=== PATIENT | male | born 1940 | race Caucasian/White ===

== ENCOUNTER 2021-10-23 07:04 | Observation (INO) | payer MEDICARE, SELFPAY ==
[2021-10-23] VITALS (53 sets, daily range): BP systolic 125–233; BP diastolic 68–112; PULSE 54–75; RESP 14–24; TEMP 35.9–36.7; O2SAT 92–98; BMI 27.9
--- NOTE | 2021-10-23 07:30 | DI.RAD.S_ITS ---
PROCEDURE: XR CHEST 1V INDICATIONS: chest pain TECHNIQUE: One view of the chest was acquired. COMPARISON: None. FINDINGS: Surgical changes and devices: None. Lungs and pleura: Minimal streaky opacity at the right cardiophrenic angle. No pleural effusions or pneumothorax. Mediastinum: Mediastinal contours appear normal. Heart size is at the upper limits of normal. Bones and chest wall: No suspicious bony lesions. Overlying soft tissues appear unremarkable. IMPRESSION: Minimal streaky opacity at the right cardiophrenic angle. Favor atelectasis over pneumonia. Dictated by: Delonte Myers M.D. on 10/23/2021 at 8:08 Approved by: Delonte Myers M.D. on 10/23/2021 at 8:09
[2021-10-23 08:04] LABS: Add Manual Diff / Slide Review NO; Basophils Absolute Auto 0 /uL (0-100); Basophils Percent Auto 0.6 % (0-2); Eosinophils Absolute Auto 300 /uL (0-450); Eosinophils Percent Auto 4.5 % (2-4); Hematocrit 43.4 % (41-53); Lymphocytes Absolute Auto 1600 /uL (1100-4500); Lymphocytes Percent Auto 27.4 % (25-40); Mean Corpuscular HGB Conc 34.6 % (30-36); Mean Corpuscular Volume 95.4 fL (80-100); Monocytes Absolute Auto 400 /uL (0-900); Monocytes Percent Auto 7.6 % (3-14); Neutrophils Absolute Auto 3500 /uL (1500-7000); Neutrophils Percent Auto 59.9 % (50-75); Platelet Count 185 X10^3/uL (150-400); Red Blood Cell Count 4.55 X10^6/uL (4.5-5.9); White Blood Cell Count 5.8 X10^3/uL (4.5-11.0)
[2021-10-23 08:10] LABS: Alanine Aminotransferase 37 IU/L (<50); Albumin 4.5 g/dL (3.5-5.0); Albumin Globulin Ratio 1.5 (1.0-2.8); Alkaline Phosphatase 69 U/L (38-126); Aspartate Aminotransferase 51 IU/L (17-59); BUN Creatinine Ratio 20.3 (6-22); Bilirubin Total 0.8 mg/dL (0.2-1.3); Blood Urea Nitrogen 16 mg/dL (9-20); Calcium 8.8 mg/dL (8.4-10.2); Carbon Dioxide 27 mmol/L (22-32); Chloride 106 mmol/L (98-107); Creatine Kinase 137 U/L (55-170); Estimated Glomerular Filt Rate > 60 mL/min (>60); Globulin 3.1 g/dL (1.7-4.1); Glucose 122 mg/dL (80-110); HEMOLYSIS 152 (0-50); Lipase 115 U/L (23-300); Magnesium 1.9 mg/dL (1.6-2.3); Sodium 138 mmol/L (137-145); Total Protein 7.6 g/dL (6.3-8.2)
[2021-10-23 08:22] LABS: Troponin I 0.019 ng/mL (0.01-0.034)
[2021-10-23 08:23] LABS: Potassium 5.2 mmol/L (3.4-5.1)
[2021-10-23 08:25] LABS: Creatine Kinase MB 2.74 ng/mL (<2.37)
--- NOTE | 2021-10-23 08:52 | ED.CHESTPAIN ---
HPI - Chest Pain General Chief Complaint: Chest Pain Stated Complaint: heart issue Time Seen by Provider: 10/23/21 08:38 Source: patient Mode of arrival: Ambulatory Limitations: no limitations History of Present Illness HPI narrative: This is a 80-year-old male with history of hypertension, dyslipidemia and borderline diabetes with a hemoglobin A1c reported at 5.6. Patient has had left-sided chest pressure that started overnight. He states still present very minimally. For the last 3-4 days he has had shortness of breath particularly when taking stairs. He states his home on [facility] has multiple stairs and he usually takes them 2 at a time and is having to slow down. He woke up at 2:30 a.m. this morning and had chest pressure with a sensation of shortness of breath. Patient states shortness of breath is resolved. He checked his blood pressure was 230/113. He denies fevers or chills, no new cold or congestive symptoms. He has a longstanding chronic cough. No nausea or vomiting, no diarrhea constipation no urinary symptoms. He normally takes a statin he was started on a blood pressure medication he describes starting with an L3 days ago and they attempted amlodipine in the past but had swelling in his extremities. No tobacco, he has 3-4 oz of alcohol 5-7 days a week, no illicit. His father had a ?burst valve? at age 71, his mother lived to 106, his sister had bilateral strokes at age 50 and survived but still is in a wheelchair. Patient does not take an aspirin daily. Related Data Home Medications Medication Instructions Recorded Confirmed rosuvastatin 5 mg tablet (Crestor) 5 mg PO QDAY #0 03/06/16 10/23/21 fluticasone propionate 50 1 spray INTRANASAL DAILY PRN 10/23/21 10/23/21 mcg/actuation nasal spray,suspension losartan 50 mg tablet 50 mg PO DAILY 10/23/21 10/23/21 omeprazole 20 mg tablet,delayed 20 mg PO DAILY 10/23/21 10/23/21 release Allergies Allergy/AdvReac Type Severity Reaction Status Date / Time amlodipine AdvReac Verified 10/23/21 12:24 atenolol AdvReac Verified 10/23/21 12:24 atorvastatin AdvReac Verified 10/23/21 12:24 lidocaine AdvReac Rash Verified 10/23/21 12:24 Penicillins AdvReac Verified 10/23/21 12:24 pravastatin AdvReac Verified 10/23/21 12:24 simvastatin AdvReac Verified 10/23/21 12:24 Review of Systems Review of Systems ROS Unobtainable: All systems reviewed & are unremarkable except as noted in HPI and below Patient History Social History household members: spouse Smoking Status: Never smoker alcohol intake: current Exam Narrative Exam Narrative: GENERAL: Alert and oriented x three, male in mild distress HEENT: Head normocephalic, atraumatic, EOMI, pupils reactive, face symmetric, moist mucous membranes NECK: Supple, full range of motion CARDIOVASCULAR: Regular rate and rhythm without murmurs, rubs or gallops. No JVD. RESPIRATORY: Breath sounds equal bilaterally, no wheezes rales or rhonchi. ABDOMEN: Soft, nontender. Normoactive bowel sounds all 4 quadrants. No guarding or rebound, rigidity, no mass : No CVA tenderness EXTREMITIES: Normal range of motion, no clubbing or edema. Neurovascularly intact NEUROLOGICAL: Cranial nerves II through XII grossly intact. Moving all extremities SKIN: Warm, dry, no petechiae, no rashes or lesions. Initial Vital Signs Initial Vital Signs: Vital Signs Temperature 96.7 F L 10/23/21 07:14 Pulse Rate 73 10/23/21 07:14 Respiratory Rate 16 10/23/21 07:14 Blood Pressure 233/112 H 10/23/21 07:14 Pulse Oximetry 96 10/23/21 07:14 Course Orders Ordered: Acetaminophen (Acetaminophen 325 Mg Tablet) 650 mg PO Q6HR PRN PRN Reason: Fever/Mild Pain (1-3) Losartan Potassium (Losartan 50 Mg Tablet) 50 mg PO DAILY [facility] Last Admin: 10/23/21 13:51 Dose: 50 mg Documented by: CMCFARL Magnesium Hydroxide (Magnesium Hydroxide 30 Ml Udc) 30 ml PO DAILY PRN PRN Reason: Constipation Naloxone HCl (Naloxone 0.4 Mg/Ml Vial) 0.2 mg IV Q2MIN PRN PRN Reason: Opiate Reversal Nitroglycerin (Nitroglycerin 0.4 Mg Sl Tab) 0.4 mg SL [id number] PRN PRN Reason: Chest Pain Pantoprazole Sodium (Pantoprazole Dr 20 Mg Tablet) 20 mg PO DAILY [facility] Last Admin: 10/23/21 13:53 Dose: 20 mg Documented by: CMCFARL Sodium Chloride (Sodium Chloride 0.9% Flush) 10 ml IV PRN PRN PRN Reason: Flush Sodium Chloride (Sodium Chloride 0.9% Flush) 10 ml IV BID [facility] Discontinued Medications Aspirin (Aspirin 81 Mg Chew Tab) 324 mg PO NOW ONE Stop: 10/23/21 09:29 Last Admin: 10/23/21 09:32 Dose: 324 mg Documented by: KAI Nitroglycerin (Nitroglycerin 0.4 Mg Sl Tab) 0.4 mg SL [id number] PRN PRN Reason: Chest Pain Last Admin: 10/23/21 09:51 Dose: 0.4 mg Documented by: Admin: 10/23/21 09:32 Dose: 0.4 mg Documented by: KAI Consultations Consultation #1: Dr. Colby, accepts for chest pain observatio and stress testing. Time: 10:47 Vital Signs Vital signs: Vital Signs - 8 hr 10/23/21 10:36 10/23/21 10:39 10/23/21 10:42 Pulse Rate 63 61 56 L Respiratory Rate 23 18 19 Blood Pressure 139/77 150/68 H 135/69 Pulse Oximetry 95 94 95 10/23/21 10:45 10/23/21 10:48 10/23/21 10:51 Pulse Rate 57 L 56 L 54 L Respiratory Rate 18 20 19 Blood Pressure 134/73 151/74 H 150/73 H Pulse Oximetry 95 96 96 10/23/21 10:54 10/23/21 10:57 10/23/21 11:00 Pulse Rate 63 64 62 Respiratory Rate 20 22 Blood Pressure 136/73 143/79 H 169/86 H Pulse Oximetry 96 96 97 MDM - Chest Pain Lab Data Result diagrams: 10/23/21 07:25 10/23/21 07:47 Labs: Lab Results 10/23/21 10/23/21 10/23/21 Range/Units 07:25 07:47 09:17 WBC 5.8 (4.5-11.0) X10^3/uL RBC 4.55 (4.5-5.9) X10^6/uL Hgb 15.0 (13.5-17.5) g/dL Hct 43.4 (41-53) % MCV 95.4 (80-100) fL MCH 33.0 (26-34) PG MCHC 34.6 (30-36) % RDW 14.0 (11.6-14.8) % Plt Count 185 (150-400) X10^3/uL Neut % (Auto) 59.9 (50-75) % Lymph % (Auto) 27.4 (25-40) % Placer % (Auto) 7.6 (3-14) % Eos % (Auto) 4.5 H (2-4) % Baso % (Auto) 0.6 (0-2) % Neut # (Auto) 3500 (3373-4251) /uL Lymph # (Auto) 1600 (6045-9217) /uL Placer # (Auto) 400 (0-900) /uL Eos # (Auto) 300 (0-450) /uL Baso # (Auto) 0 (0-100) /uL Sodium 138 (137-145) mmol/L Potassium 5.2 H (3.4-5.1) mmol/L Chloride 106 (98-107) mmol/L Carbon Dioxide 27 (22-32) mmol/L BUN 16 (9-20) mg/dL Creatinine 0.79 (0.66-1.25) mg/dL Estimated GFR > 60 (>60) mL/min BUN/Creatinine Ratio 20.3 (6-22) Glucose 122 H (80-110) mg/dL Calcium 8.8 (8.4-10.2) mg/dL Magnesium 1.9 (1.6-2.3) mg/dL Total Bilirubin 0.8 (0.2-1.3) mg/dL AST 51 (17-59) IU/L ALT 37 (<50) IU/L Alkaline Phosphatase 69 (38-126) U/L Total Creatine Kinase 137 (55-170) U/L CK-MB (CK-2) 2.74 H (<2.37) ng/mL CK-MB (CK-2) Rel Index 2.0 (1.5-5.0) % Troponin I 0.019 0.019 (0.01-0.034) ng/mL Total Protein 7.6 (6.3-8.2) g/dL Albumin 4.5 (3.5-5.0) g/dL Globulin 3.1 (1.7-4.1) g/dL Albumin/Globulin Ratio 1.5 (1.0-2.8) Lipase 115 (23-300) U/L SARS-CoV-2 (PCR) (Negative) 10/23/21 Range/Units 09:22 WBC (4.5-11.0) X10^3/uL RBC (4.5-5.9) X10^6/uL Hgb (13.5-17.5) g/dL Hct (41-53) % MCV (80-100) fL MCH (26-34) PG MCHC (30-36) % RDW (11.6-14.8) % Plt Count (150-400) X10^3/uL Neut % (Auto) (50-75) % Lymph % (Auto) (25-40) % Placer % (Auto) (3-14) % Eos % (Auto) (2-4) % Baso % (Auto) (0-2) % Neut # (Auto) (8789-1980) /uL Lymph # (Auto) (4963-0188) /uL Placer # (Auto) (0-900) /uL Eos # (Auto) (0-450) /uL Baso # (Auto) (0-100) /uL Sodium (137-145) mmol/L Potassium (3.4-5.1) mmol/L Chloride (98-107) mmol/L Carbon Dioxide (22-32) mmol/L BUN (9-20) mg/dL Creatinine (0.66-1.25) mg/dL Estimated GFR (>60) mL/min BUN/Creatinine Ratio (6-22) Glucose (80-110) mg/dL Calcium (8.4-10.2) mg/dL Magnesium (1.6-2.3) mg/dL Total Bilirubin (0.2-1.3) mg/dL AST (17-59) IU/L ALT (<50) IU/L Alkaline Phosphatase (38-126) U/L Total Creatine Kinase (55-170) U/L CK-MB (CK-2) (<2.37) ng/mL CK-MB (CK-2) Rel Index (1.5-5.0) % Troponin I (0.01-0.034) ng/mL Total Protein (6.3-8.2) g/dL Albumin (3.5-5.0) g/dL Globulin (1.7-4.1) g/dL Albumin/Globulin Ratio (1.0-2.8) Lipase (23-300) U/L SARS-CoV-2 (PCR) Negative (Negative) Urine Dip Bedside Urine Glucose Negative Bedside Urine Bilirubin - Negative Bedside Urine Ketone - Negative Urine Specific [place] 1.010 Bedside Urine Occult Blood - Negative Bedside Urine pH 6.0 Bedside Urine Protein - Negative Bedside Urine Urobilinogen - Negative Bedside Urine Nitrite - Negative Bedside Urine Leukocytes - Negative Esterase Imaging Data Chest x-ray: Radiologist's Impression: [address] [address] XRay Report Signed Patient: Vishal Calderon MR#: [id number] : 1940 Acct:[id number] Age/Sex: 80 / M Date of Service: 10/23/21 Loc: ED Accession Number: [id number] ?? Procedure: XR chest 1V Ordering Provider: Erin Bowman D.O. PROCEDURE:? XR CHEST 1V ? INDICATIONS:? chest pain ? TECHNIQUE:? One view of the chest was acquired.? ? COMPARISON:? None. ? FINDINGS:? ? Surgical changes and devices:? None.? ? Lungs and pleura:? Minimal streaky opacity at the right cardiophrenic angle.? No pleural effusions or pneumothorax.? ? Mediastinum:? Mediastinal contours appear normal.? Heart size is at the upper limits of normal.? ? Bones and chest wall:? No suspicious bony lesions.? Overlying soft tissues appear unremarkable.? ? IMPRESSION:? Minimal streaky opacity at the right cardiophrenic angle.? Favor atelectasis over pneumonia. ? ? ? Dictated by: Delonte Myers M.D. on 10/23/2021 at 8:08 ? ? Approved by: Delonte Myers M.D. on 10/23/2021 at 8:09?? ECG Data Attestation: I personally reviewed and interpreted this ECG as follows: Prior ECG tracings: not available for review Interpretation: Sinus bradycardia rate of 57 IL 156 QRS 82 and QTC of 402. No acute ST elevation or depression noted. EKG 2 shows sinus rhythm, rate of 62 [place] 160 QRS is 88 QTC of 406. Patient's EKG has no acute ST changes and appears similar to prior from today. [facility] Narrative Medical decision making narrative: This is a 80-year-old male who comes to the emergency department with complaint shortness of breath and chest pressure particularly with exertion patient's initial troponin, EKG and chest x-ray show no acute changes. He was quite hypertensive upon arrival and was still 190s with evaluated by myself. Patient just started a new blood pressure medication 3 days ago. Potassium is slightly elevated but no other major lab changes. Patient's repeat troponin is negative, no acute EKG changes, patient had significant improvement his chest pressure with nitro. Was given aspirin nitro but to heparin was not initiated spoke with hospitalist who accepts for observation for chest pain. Discharge Plan Departure Patient Disposition: Admitted as Observation Clinical Impression: Chest pain Admit Date/Time: 10/23/21 11:02 Admit Provider: Nash Colby
[2021-10-23] MEDS: ASPIRIN 81 MG CHEW TAB 324 MG PO (09:32)
[2021-10-23] MEDS: NITROGLYCERIN 0.4 MG SL TAB SL ×2 (09:32→09:51)
--- NOTE | 2021-10-23 09:44 | PC.NURSE ---
Chest pressure reduced to 1/10 after one dose nitro. BP 130/73
[2021-10-23 09:53] LABS: Troponin I 0.019 ng/mL (0.01-0.034)
[2021-10-23 10:00] LABS: COVID19 -Nasal RAPID Negative (Negative)
--- NOTE | 2021-10-23 12:52 | DI.ECHO.S_ITS ---
[facility] +---------+ : : [address] : : : : [id number] : : : : Phone: [phone] Echocardiogram Report + + :Name: KRISTAL HOWELL Study Date: 10/23/2021 Height: 66 in : :[facility] ReadingLocation: Weight: 173 lb : : Gender: Male BSA: 1.9 m2 : :: 1940 Age: 80 yrs BP: 137/76 mmHg: :Reason For Study: CHEST PAIN : :Ordering Physician: ANDRIA, : :HONORIO Performed By: Abida Beatty : :Referring: HONORIO AYERS : + + Interpretation Summary The ejection fraction is estimated to be 60-65%. Diastolic function is indeterminate. The right ventricle is normal in size and function. There is mild tricuspid regurgitation. The right ventricular systolic pressure is estimated to be at least 32 mmHg based on an estimated right atrial pressure of 3 mm Hg. Procedure: A two-dimensional transthoracic echocardiogram with color flow and Doppler was performed. The study quality was technically adequate. There is no prior echocardiogram noted for this patient. The patient was in sinus rhythm with heart rates between 54-68 bpm during the exam. Left Ventricle: The left ventricle is normal in size and wall thickness. The ejection fraction is estimated to be 60-65%. Diastolic function could not be accurately assessed due to contradictory data. Right Ventricle: The right ventricle is normal in size and function. Atria: The left atrial size is normal. Right atrial size is normal. There is no Doppler evidence for an interatrial shunt. Mitral Valve: The mitral valve is normal in structure and function. There is mild mitral regurgitation. Aortic Valve: The aortic valve is trileaflet. The aortic valve opens well. There is no aortic valve stenosis. There is trace aortic regurgitation. Tricuspid Valve: The tricuspid valve is normal in structure and function. There is mild tricuspid regurgitation. The right ventricular systolic pressure is estimated to be at least 32 mmHg based on an estimated right atrial pressure of 3 mm Hg. Pulmonic Valve: The pulmonic valve is not well seen, but is grossly normal. There is trace pulmonic regurgitation. Great Vessels: The aortic root is normal size. The dimensions of the ascending aorta are normal. The IVC is of normal diameter and collapses greater than 50% with a sniff. This suggests a low right atrial pressure of 3 mm Hg. Pericardium/ Pleura There is no pericardial effusion. There is no pleural effusion. MMode/2D Measurements & Calculations LVIDd: 4.7 cm LVOT diam: 2.1 cm LVIDs: 3.0 cm Ao root diam: 3.3 cm FS: 35.5 % asc Aorta Diam: 3.4 cm IVSd: 0.98 cm Ao Arch Diam (Prox Trans): 2.9 cm LVPWd: 0.86 cm LV guerrero. diameter/BSA (cm/m^2): 2.5 LV sys. diameter/BSA (cm/m^2): 1.6 LA A2 area: 18.2 cm2 RA long axis: 5.0 cm LA A4 area: 17.2 cm2 RA area: 15.0 cm2 LA length (vol): 5.1 cm RA vol: 38.1 ml LA vol: 52.7 ml RA : 20.2 ml/m2 LA vol index: 28.0 ml/m2 IVC diam: 1.3 cm RVD1 (basal): 3.4 cm RVD2 (mid): 3.1 cm TAPSE: 2.2 cm Doppler Measurements & Calculations Ao V2 max: 129.9 cm/sec LVOT Max Eugene: 79.9 cm/sec Ao V2 mean: 93.4 cm/sec LV V1 max P.6 mmHg Ao max P.8 mmHg LV V1 VTI: 19.2 cm Ao mean P.8 mmHg SULLY(I,D): 2.2 cm2 Ao V2 VTI: 31.3 cm SULLY(V,D): 2.2 cm2 sev ratio: 0.62 SULLY indexed to BSA (cm^2/m^2): 1.2 MV E max eugene: 91.6 cm/sec TR max eugene: 270.3 cm/sec MV A max eugene: 100.5 cm/sec TR max P.2 mmHg MV E/A: 0.91 PA V2 max: 68.2 cm/sec Med Peak E' Eugene: 3.3 cm/sec PA V2 mean: 49.9 cm/sec E/E' med: 27.8 PA mean P.1 mmHg Lat Peak E' Eugene: 5.9 cm/sec PA pr(Accel): 5.4 mmHg E/E' lat: 15.5 E/e' average: 21.6 MV dec time: 0.22 sec [facility] 68.8 ml Reading Physician:02:42 PM
--- NOTE | 2021-10-23 12:52 | DI.NM.S_ITS ---
PROCEDURE: NM TERENCE PERF SPECT REST & STR Rest and exercise myocardial perfusion SPECT with gated imaging and ejection fraction RADIOPHARMACEUTICAL: 11.5 mCi Tc-99m sestamibi IV at rest and 25.2 mCi Tc-99m sestamibi IV at peak exercise. A 1-tdv-pruurvjo was performed. INDICATIONS: chest pain TECHNIQUE: Radiopharmaceutical was injected at peak stress test, and also at rest. SPECT images were obtained. SPECT myocardial perfusion images were displayed in short axis, horizontal long axis, and vertical long axis views. Gated images were reviewed using Central Desktop software. COMPARISON: None. CARDIAC STRESS: A standard Rohan treadmill exercise tolerance test was performed by the patient under the supervision of an attending staff. The patient exercised for 9 minutes and 0 seconds; 10.1 METS; functional aerobic impairment (PEMA) is -59%. Hemodynamic data: There is normal blood pressure and heart rate response to exercise stress. Patient achieved 118% of maximum predicted heart rate at peak exercise. Symptoms: Patient denied chest pain during exercise. EKG: No diagnostic EKG changes of ischemia; frequent PVCs. FINDINGS: Raw data: There is good myocardial labeling by radiotracer. No significant motion artifacts. Gqjl-dd-rdjjd ratio is 0.27 (normal is less than 0.38 for sestamibi tracer, and less than 0.50 for thallium tracer). Left ventricle function: Gated images demonstrate normal left ventricle wall thickening. No segmental wall motion abnormality. No transient ischemic dilation; TID is 0.90 (normal less than 1.3). The left ventricle resting end-diastolic volume is 90 mL. Left ventricle stress ejection fraction is 72%; normal values are above 45%. Myocardial perfusion: There is normal distribution of activity in the left and right ventricular myocardium. No fixed or reversible perfusion defects. IMPRESSION: No evidence of exercise-induced ischemia on ECG or SPECT imaging. Normal ejection fraction. Normal blood pressure response to exercise, max BP 192/98. Excellent exercise capacity. Dictated by: Eve Singh D.O. on 10/24/2021 at 15:53 Approved by: Eve Singh D.O. on 10/24/2021 at 15:57
--- NOTE | 2021-10-23 13:05 | P.HP_ITS ---
History of Present Illness History of Present Illness Date Patient Seen: 10/23/21 Time Patient Seen: 12:00 Chief complaint: heart issue Narrative: 80-year-old male with history of hypertension, hyperlipidemia, GERD presents to the ED with new onset chest discomfort and dyspnea. Patient developed chest discomfort late last night. He was able to fall asleep but woke up at 2:00 a.m. from chest pain. He describes it as a pressure in the left chest. He checked h is blood pressure then and got a reading of 230/113. The discomfort was persistent but patient lives on [facility] and was waiting for the 6:30 a.m. kim to come in to get checked out. He was still having chest pain when he arrived in the ED. The discomfort was relieved after 2 sublingual nit roglycerin. His initial BP in the ED was 233/112 and came down significantly after the nitroglycerin. Patient also notes a sore ferguson all dyspnea which started a few days ago and occurs with walking up an incline or carrying heavy things. He denies past history of cardiac disease. He was started on losartan about 10 days ago after he saw his provider for a routine physical. He states blood pressure at provider's office was 165/85. He had been on amlodipine a year ago which caused swelling in the feet and thereby stopped it. He is a nonsmoker. He has several drinks a week. Family history notable for sister who had major stroke at age 50 and father who at age 71 from a burst heart valve. Mom lived to past age 100. His initial troponin is negative. Initial EKG show sinus bradycardia, possible old anterior SC, no acute appearing changes. Chest x-ray shows minimal streaky opacity at right base consistent with atelectasis. He has not had fever, cough or chills to suggest pneumonia. COVID was negative. Glucose was a little high at 122, potassium a little high at 5.2. Patient History Family & Social History Social History: household members spouse Prior Living Arrangements House Safety & Behavioral: Feels Safe in Current Yes Environment Been Physically Hurt or No Threatened By a Person Tobacco & Substance use: Smoking Status Never smoker alcohol intake current alcohol intake frequency a few times a week Substance Use Type does not use Meds Home Medications and Allergies Home Medications Medication Instructions Recorded Confirmed Type rosuvastatin 5 mg tablet (Crestor) 5 mg PO QDAY #0 03/06/16 10/23/21 History fluticasone propionate 50 1 spray INTRANASAL DAILY PRN 10/23/21 10/23/21 History mcg/actuation nasal spray,suspension losartan 50 mg tablet 50 mg PO DAILY 10/23/21 10/23/21 History omeprazole 20 mg tablet,delayed 20 mg PO DAILY 10/23/21 10/23/21 History release Allergies Allergy/AdvReac Type Severity Reaction Status Date / Time amlodipine AdvReac Verified 10/23/21 12:24 atenolol AdvReac Verified 10/23/21 12:24 atorvastatin AdvReac Verified 10/23/21 12:24 lidocaine AdvReac Rash Verified 10/23/21 12:24 Penicillins AdvReac Verified 10/23/21 12:24 pravastatin AdvReac Verified 10/23/21 12:24 simvastatin AdvReac Verified 10/23/21 12:24 Review of Systems Review of Systems Narrative: Complete 10 point ROS otherwise negative. Exam Vital Signs (past 8 hours): - 10/23/21 07:14 10/23/21 07:18 10/23/21 07:30 Temperature 96.7 F L Pulse Rate 73 66 66 Respiratory Rate 16 15 21 Blood Pressure 233/112 H 213/97 H Pulse Oximetry 96 97 96 10/23/21 08:00 10/23/21 08:30 10/23/21 09:00 Temperature Pulse Rate 63 63 60 Respiratory Rate 20 17 18 Blood Pressure 194/96 H 199/99 H 191/89 H Pulse Oximetry 96 93 96 10/23/21 09:30 10/23/21 09:32 10/23/21 09:36 Temperature Pulse Rate 66 65 60 Respiratory Rate 18 20 Blood Pressure 188/90 H 188/90 H 168/83 H Pulse Oximetry 97 97 10/23/21 09:39 10/23/21 09:42 10/23/21 09:45 Temperature Pulse Rate 75 73 68 Respiratory Rate 19 19 21 Blood Pressure 145/81 H 130/73 147/80 H Pulse Oximetry 95 92 93 10/23/21 09:48 10/23/21 09:51 10/23/21 09:54 Temperature Pulse Rate 74 66 68 Respiratory Rate 22 19 18 Blood Pressure 150/85 H 149/83 H 154/78 H Pulse Oximetry 95 95 95 10/23/21 09:57 10/23/21 10:00 10/23/21 10:03 Temperature Pulse Rate 75 70 73 Respiratory Rate 18 19 Blood Pressure 141/75 H 145/76 H 147/76 H Pulse Oximetry 93 94 94 10/23/21 10:06 10/23/21 10:09 10/23/21 10:12 Temperature Pulse Rate 73 66 75 Respiratory Rate 21 19 23 Blood Pressure 144/76 H 139/78 147/84 H Pulse Oximetry 95 95 96 10/23/21 10:15 10/23/21 10:18 10/23/21 10:21 Temperature Pulse Rate 73 70 67 Respiratory Rate 21 14 20 Blood Pressure 158/88 H 133/74 125/73 Pulse Oximetry 95 95 95 10/23/21 10:24 10/23/21 10:27 10/23/21 10:30 Temperature Pulse Rate 68 68 60 Respiratory Rate 19 19 Blood Pressure 134/78 141/82 H 140/80 Pulse Oximetry 95 96 96 10/23/21 10:33 10/23/21 10:36 10/23/21 10:39 Temperature Pulse Rate 66 63 61 Respiratory Rate 19 23 18 Blood Pressure 144/81 H 139/77 150/68 H Pulse Oximetry 95 95 94 10/23/21 10:42 10/23/21 10:45 10/23/21 10:48 Temperature Pulse Rate 56 L 57 L 56 L Respiratory Rate 19 18 20 Blood Pressure 135/69 134/73 151/74 H Pulse Oximetry 95 95 96 10/23/21 10:51 10/23/21 10:54 10/23/21 10:57 Temperature Pulse Rate 54 L 63 64 Respiratory Rate 19 20 Blood Pressure 150/73 H 136/73 143/79 H Pulse Oximetry 96 96 96 10/23/21 11:00 10/23/21 11:03 10/23/21 11:06 Temperature Pulse Rate 62 63 59 L Respiratory Rate 22 22 18 Blood Pressure 169/86 H 179/81 H 154/75 H Pulse Oximetry 97 97 97 10/23/21 11:09 10/23/21 11:12 10/23/21 11:15 Temperature Pulse Rate 59 L 56 L 60 Respiratory Rate 20 20 23 Blood Pressure 137/72 132/72 138/71 Pulse Oximetry 96 96 96 10/23/21 11:18 10/23/21 11:21 10/23/21 11:24 Temperature Pulse Rate 57 L 54 L 56 L Respiratory Rate 20 19 19 Blood Pressure 143/75 H 138/72 143/75 H Pulse Oximetry 96 95 96 10/23/21 11:28 10/23/21 11:30 10/23/21 11:33 Temperature Pulse Rate 54 L 56 L 58 L Respiratory Rate 22 21 24 Blood Pressure 137/76 128/74 143/71 H Pulse Oximetry 97 96 97 Oxygen Delivery Method Room Air Narrative Exam Narrative: General: Very pleasant alert male in no acute distress HEENT: Pupils equal and reactive, anicteric Neck: No JVD, no lymphadenopathy Lungs: Few bibasilar crackles Heart: Normal S1 and S2, regular rate and rhythm, no murmur gallop or rub Extremities: No edema Neurological: Normal orientation, speech and affect Objective Labs Result Diagrams: 10/23/21 07:25 10/23/21 07:47 Labs: Laboratory Results - last 24 hr 10/23/21 10/23/21 10/23/21 07:25 07:47 09:17 WBC 5.8 RBC 4.55 Hgb 15.0 Hct 43.4 MCV 95.4 MCH 33.0 MCHC 34.6 RDW 14.0 Plt Count 185 Neut % (Auto) 59.9 Lymph % (Auto) 27.4 [place] % (Auto) 7.6 Eos % (Auto) 4.5 H Baso % (Auto) 0.6 Neut # (Auto) 3500 Lymph # (Auto) 1600 [place] # (Auto) 400 Eos # (Auto) 300 Baso # (Auto) 0 Sodium 138 Potassium 5.2 H Chloride 106 Carbon Dioxide 27 BUN 16 Creatinine 0.79 Estimated GFR > 60 BUN/Creatinine Ratio 20.3 Glucose 122 H Calcium 8.8 Magnesium 1.9 Total Bilirubin 0.8 AST 51 ALT 37 Alkaline Phosphatase 69 Total Creatine Kinase 137 CK-MB (CK-2) 2.74 H CK-MB (CK-2) Rel Index 2.0 Troponin I 0.019 0.019 Total Protein 7.6 Albumin 4.5 Globulin 3.1 Albumin/Globulin Ratio 1.5 Lipase 115 SARS-CoV-2 (PCR) 10/23/21 09:22 WBC RBC Hgb Hct MCV MCH MCHC RDW Plt Count Neut % (Auto) Lymph % (Auto) [place] % (Auto) Eos % (Auto) Baso % (Auto) Neut # (Auto) Lymph # (Auto) [place] # (Auto) Eos # (Auto) Baso # (Auto) Sodium Potassium Chloride Carbon Dioxide BUN Creatinine Estimated GFR BUN/Creatinine Ratio Glucose Calcium Magnesium Total Bilirubin AST ALT Alkaline Phosphatase Total Creatine Kinase CK-MB (CK-2) CK-MB (CK-2) Rel Index Troponin I Total Protein Albumin Globulin Albumin/Globulin Ratio Lipase SARS-CoV-2 (PCR) Negative Assessment & Plan Assessment & Plan narrative: 1. Acute chest pain and exertional dyspnea -symptoms concerning for occlusive CAD versus hypertensive urgency, patient presents severely hypertensive -admitted to hospital observation -aspirin 81 mg q.d., start IV heparin if having recurrent CP -continue patient's statin and PPI -telemetry -serial troponin -EKG in a.m. -echo -myocardial perfusion treadmill stress test -lipid panel 2. Acute hypertensive urgency -presents with severely elevated BP at home and on presentation to ED accompanied by chest pain, BP is much improved after sublingual nitroglycerin -resume patient's losartan 50 mg q.d. which was recently started -previously on amlodipine which caused pedal edema but if needed can be re- initiated since concomitant ARB would avoid the side effect -trend BP 3. Mild hyperglycemia -glucose 122 in lab -check A1c Time Spent With Patient Critical Care time: I spent a total of [] minutes of critical care time on this patient's care today; this time is exclusive of procedural time. Quality VTE Deep Vein Thrombosis/Pulmonary Embolism Present on Admission: No
[2021-10-23 13:48] LABS: Hemoglobin A1C% w Est Avg Glu 6.1 % (4.0-6.0)
[2021-10-23 13:49] LABS: Cholesterol 262 mg/dL (140-199); HDL Cholesterol 66 mg/dL (40-60); LDL Cholesterol Calculated 158 mg/dL (<100); Triglycerides 192 mg/dL (35-150)
[2021-10-23] MEDS: LOSARTAN 50 MG TABLET PO (13:51)
[2021-10-23] MEDS: PANTOPRAZOLE DR 20 MG TABLET PO (13:53)
[2021-10-23 13:57] LABS: Troponin I 0.025 ng/mL (0.01-0.034)
[2021-10-23] MEDS: SODIUM CHLORIDE 0.9% FLUSH 10 ML IV (19:40)
[2021-10-24] VITALS: BP 170/81; PULSE 61; RESP 18; TEMP 36.8; O2SAT 94
--- NOTE | 2021-10-24 00:29 | PC.NURSE ---
Patient is alert and oriented. Breath sounds CTA with RA sat of 95%; denies SOB. HRR with telemetry reading of SB rate of 60 and denies any chest pain/pressure/discomfort. Denied nausea. BT present and abdomen is soft. Denied dysuria, frequency or urgency with urination. Independent with mobility and is steady on feet with no reported falls. SCD's are not ordered. Petichiae noted on all extremities/back but denied itching. Fall risk score is low. Is NPO after 0000 for stress test in the morning; patient aware and verbalizes understanding.
[2021-10-24 04:00] VITALS: BP 140/65; PULSE 65; RESP 18; TEMP 36.6; O2SAT 97
[2021-10-24 08:00] VITALS: BP 155/72; PULSE 58; RESP 16; TEMP 36.1; O2SAT 94
[2021-10-24 08:41] VITALS: BP 155/72; PULSE 58
[2021-10-24] MEDS: PANTOPRAZOLE DR 20 MG TABLET PO (08:41)
[2021-10-24] MEDS: LOSARTAN 50 MG TABLET PO (08:41)
[2021-10-24] MEDS: SODIUM CHLORIDE 0.9% FLUSH 10 ML IV (08:43)
--- NOTE | 2021-10-24 08:52 | PM.DS.1 ---
History of Present Illness History of Present Illness Chief complaint: heart issue Narrative: Per admitting provider: 80-year-old male with history of hypertension, hyperlipidemia, GERD presents to the ED with new onset chest discomfort and dyspnea.? Patient developed chest discomfort late last night.? He was able to fall asleep but woke up at 2:00 a.m. from chest pain.? He describes it as a pressure in the left chest.? He checked his blood pressure then and got a reading of 230/113.? The discomfort was persistent but patient lives on [facility] and was waiting for the 6:30 a.m. [email or web address] to come in to get checked out.? He was still having chest pain when he arrived in the ED.? The discomfort was relieved after 2 sublingual nitroglycerin.? His initial BP in the ED was 233/112 and came down significantly after the nitroglycerin.? Patient also notes a sore ferguson all dyspnea which started a few days ago and occurs with walking up an incline or carrying heavy things.? He denies past history of cardiac disease.? He was started on losartan about 10 days ago after he saw his provider for a routine physical.? He states blood pressure at provider's office was 165/85.? He had been on amlodipine a year ago which caused swelling in the feet and thereby stopped it.? He is a nonsmoker.? He has several drinks a week.? Family history notable for sister who had major stroke at age 50 and father who at age 71 from a burst heart valve.? Mom lived to past age 100. His initial troponin is negative.? Initial EKG show sinus bradycardia, possible old anterior MT, no acute appearing changes.? Chest x-ray shows minimal streaky opacity at right base consistent with atelectasis.? He has not had fever, cough or chills to suggest pneumonia.? COVID was negative.? Glucose was a little high at 122, potassium a little high at 5.2. Discharge Providers Provider Date of admission: 10/23/21 11:02 Discharge Date: 10/24/21 Discharge provider: Shoaib Birch MD Summary Hospital Course Discharge Diagnosis: 1. Acute chest pain 2. Hypertension 3. Elevated A1c Hospital Course: Mr. Liu was admitted to the hospital with chest pain. His EKG showed no acute process. Troponin were negative. His symptoms improved. His ECHO showed no acute process. His stress test showed no evidence of ischemia. His blood pressure was high, however he was just recently started on losartan, so no changes were made, and he did have already an appointment scheduled with his PCP to discuss if additional changes were needed. His A1c was slightly elevated at 6.1 and he should follow up with PCP. Exam Vital Signs (past 8 hours): Oxygen Delivery Method Room Air Oxygen Flow Rate 0 Narrative Exam Narrative: GEN: no acute distress CV: regular rate and rhythm, no murmurs PULM: clear bilaterally Objective Labs Result Diagrams: 10/23/21 07:25 10/23/21 07:47 [facility] Social History household members: spouse Smoking Status: Never smoker alcohol intake: current Discharge Plan Discharge Plan Patient Disposition: Home Provider Discharge Comment: Mr. Calderon came in with chest discomfort. It improved. He had a stress test that was negative. He should follow up with his doctor as planned to continue managing his blood pressure. Discharge orders & Medications Prescriptions: Continued rosuvastatin [Crestor] 5 MG tablet 5 mg PO QDAY Qty: 0 0RF losartan 50 mg tablet 50 mg PO DAILY 0RF fluticasone propionate 50 mcg/actuation [place],Suspension 1 spray INTRANASAL DAILY PRN (Reason: Allergy Symptoms) 0RF Rx Instructions: administer into each nostril omeprazole 20 mg Tablet,Delayed Release (Dr/Ec) 20 mg PO DAILY 0RF Diet/Activity/Treatments Diet: Regular Visit Report/Discharge Packet Instructions: High Blood Pressure (Hypertension) (Alternative Therapy), DI for Chest Pain Discharge Data Attending Provider: Nash Colby VTE Deep Vein Thrombosis/Pulmonary Embolism Present on Admission: No
[2021-10-24 12:00] VITALS: BP 176/87; PULSE 62; RESP 20; TEMP 36.1; O2SAT 95
--- NOTE | 2021-10-24 16:15 | PC.NURSE ---
Patient discharged to home. he states he has no further questions at this time, and already has a follow up appointment and lab worked scheduled with his PCP for his blood pressure. IV dc'd intact. Instructed to seek care for new or worsening symptoms/.
== END 2021-10-24 16:17 | disposition home or self-care (01) ==
LOC: ED 10:46 → AC 11:03
PROVIDERS: Admitting Provider Internal Medicine; Emergency Provider Emergency Medicine; Referring Provider Emergency Medicine; Visit Provider Internal Medicine
DX: I16.0 Hypertensive urgency (principal); R07.9 Chest pain, unspecified; R06.02 Shortness of breath; I10 Essential (primary) hypertension; R73.9 Hyperglycemia, unspecified; E78.5 Hyperlipidemia, unspecified; K21.9 Gastro-esophageal reflux disease without esophagitis; Z20.822 Contact with and (suspected) exposure to COVID-19
CPT/HCPCS: 36415; 71045; 78452; 80053; 80061; 81003; 82550; 82553; 83036; 83690; 83735; 84484; 85025; 87635; 93005; 93010; 93017; 93306; 99284; C9803; G0378; A9502